=== PATIENT | female | born 1985 | race Asian ===

== ENCOUNTER 2021-11-11 21:03 | Inpatient (IN) | payer SELFPAY ==
[~2021-11-11] VITALS: Ht 162.6 cm; Wt 64.0 kg
[2021-11-11 22:10] VITALS: BP_SYST 146
[2021-11-11] MEDS ORDERED: NACL 0.9% 1,000 ML IV ONE (22:15)
[2021-11-11] MEDS ORDERED: ONDANSETRON HCL 4 MG/2 ML VIAL IVP ONE (22:15)
[2021-11-11] MEDS ORDERED: MORPHINE 4 MG INJ. 4 MG/ML VIAL IVP ONE (22:15)
[2021-11-11 22:45] LABS: HEMOGLOBIN 11.7 g/dL (12.0-16.0)
[2021-11-11 22:52] LABS: HEMATOCRIT 36.1 % (36-48); MEAN CORPUSCULAR HEMOGLOBIN 24 pg (27-31); MEAN CORPUSCULAR HGB CONC 32 % (32-36); MEAN CORPUSCULAR VOLUME 75 fL (79.0-98.0); PLATELET COUNT (AUTO) 424 K/uL (130-430); RED CELL DISTRIBUTION WIDTH 19.4 % (9.0-15.0); WHITE BLOOD COUNT (AUTO) 11.5 K/uL (4.8-10.8)
[2021-11-11 23:04] LABS: CALCIUM 9.8 mg/dL (8.4-11.0); CREATININE 0.74 mg/dL (0.55-1.30); POTASSIUM 3.6 mmol/L (3.5-5.1)
[2021-11-11 23:16] LABS: ALBUMIN 4.3 g/dL (3.4-4.8); TOTAL BILIRUBIN 3.2 mg/dL (0.0-1.0)
[2021-11-12 00:01] LABS: BASOPHILS % (MANUAL) 0 % (0-2); EOSINOPHILS % (MANUAL) 0 % (0-7); LYMPHOCYTES % (MANUAL) 6 % (20-46); MONOCYTES % (MANUAL) 3 % (0-11)
[2021-11-12] MEDS ORDERED: LR 1,000 ML IV ONE (00:45)
[2021-11-12] MEDS ORDERED: ONDANSETRON HCL 4 MG/2 ML VIAL IVP PRN (00:45)
[2021-11-12] MEDS ORDERED: HYDROmorphone 1 MG/ML INJ. CARTRIDGE IVP PRN ×2 (00:45)
[2021-11-12 03:05] VITALS: BP_SYST 127
[2021-11-12] MEDS: LR 1,000 ML IV SCH ×2 (04:09→11:37)
[2021-11-12] MEDS ORDERED: PIPERACILLIN/TAZOBACTAM 3.375 GM/VIAL (ZOSYN) IV ONE (04:12)
[2021-11-12] MEDS: PIPERACILLIN/TAZO 3.375 GM in NS 50 ML IV SCH ×3 (05:40→17:17)
[2021-11-12] MEDS ORDERED: ACETAMINOPHEN 325 MG TABLET PO PRN (07:15)
[2021-11-12 08:22] VITALS: BP_SYST 121
[2021-11-12 12:38] VITALS: BP_SYST 111
[2021-11-12 14:58] LABS: BILIRUBIN,URINE 1+ (NEGATIVE); BLOOD, URINE 3+ (NEGATIVE); CLARITY/URINE CLEAR (CLEAR); COLOR,URINE YELLOW (YELLOW); GLUCOSE,URINE NEGATIVE (NEGATIVE); KETONES,URINE 1+ (NEGATIVE); LEUKOCYTE ESTERASE ,URINE NEGATIVE (NEGATIVE); NITRITE, URINE NEGATIVE (NEGATIVE); PROTEIN URINE NEGATIVE (NEGATIVE)
[2021-11-12 15:02] LABS: BACTERIA,URINE RARE /HPF (None Seen); MUCUS,URINE 1+ /LPF (None Seen); WBC,URINE 0-3 /HPF (0-3)
[2021-11-12 17:17] VITALS: BP_SYST 121
[2021-11-12 20:00] VITALS: BP_SYST 107
[2021-11-13] MEDS: PIPERACILLIN/TAZO 3.375 GM in NS 50 ML IV SCH ×5 (00:10→21:32)
[2021-11-13] MEDS: LR 1,000 ML IV SCH ×3 (03:54→20:39)
[2021-11-13 04:00] VITALS: BP_SYST 121
[2021-11-13 08:00] VITALS: BP_SYST 124
[2021-11-13 08:04] LABS: BASOPHILS % (AUTO) 0.6 % (0.0-2.0); EOSINOPHILS # (AUTO) 0.2 K/uL (0.0-0.4); EOSINOPHILS % (AUTO) 2.2 % (0.0-4.0); HEMATOCRIT 28.6 % (36-48); HEMOGLOBIN 9.6 g/dL (12.0-16.0); LYMPHOCYTES # (AUTO) 2.1 K/uL (1.0-5.5); MEAN CORPUSCULAR HEMOGLOBIN 25 pg (27-31); MEAN CORPUSCULAR HGB CONC 34 % (32-36); MEAN CORPUSCULAR VOLUME 75 fL (79.0-98.0); MONOCYTES # (AUTO) 0.6 K/uL (0.0-1.0); MONOCYTES % (AUTO) 7.9 % (1.7-9.3); NEUTROPHILS # (AUTO) 4.1 K/uL (1.8-7.7); NEUTROPHILS % (AUTO) 59.3 % (40.0-70.0); PLATELET COUNT (AUTO) 331 K/uL (130-430); RED BLOOD CELL COUNT(AUTO) 3.79 MIL/uL (4.2-6.2); RED CELL DISTRIBUTION WIDTH 19.8 % (9.0-15.0)
[2021-11-13 08:14] LABS: ALBUMIN 2.9 g/dL (3.4-4.8); CREATININE 0.54 mg/dL (0.55-1.30); PHOSPHORUS 3.6 mg/dL (2.7-4.5); TOTAL BILIRUBIN 1.2 mg/dL (0.0-1.0)
[2021-11-13 10:58] LABS: POTASSIUM 2.8 mmol/L (3.5-5.1)
[2021-11-13] MEDS ORDERED: POTASSIUM CHLORIDE 20 MEQ/PKT PACKET PO ONE (11:15)
[2021-11-13 11:20] VITALS: BP_SYST 124
[2021-11-13 15:30] VITALS: BP_SYST 134
[2021-11-13] MEDS: POTASSIUM CHLORIDE 20 MEQ/PKT PACKET PO SCH ×2 (18:10→20:33)
[2021-11-13 20:00] VITALS: BP_SYST 139
[2021-11-14] VITALS: BP_SYST 133
[2021-11-14 06:00] VITALS: BP_SYST 131
[2021-11-14] MEDS: INDOMETHACIN 50 MG SUPP.RECT RC ONE ×2 (07:00→09:55)
[2021-11-14] MEDS: PIPERACILLIN/TAZO 3.375 GM in NS 50 ML IV SCH ×4 (07:19→23:38)
[2021-11-14 07:25] LABS: BASOPHILS # (AUTO) 0.1 K/uL (0.0-0.2); BASOPHILS % (AUTO) 0.7 % (0.0-2.0); EOSINOPHILS # (AUTO) 0.1 K/uL (0.0-0.4); EOSINOPHILS % (AUTO) 1.1 % (0.0-4.0); HEMATOCRIT 31.2 % (36-48); HEMOGLOBIN 10.3 g/dL (12.0-16.0); LYMPHOCYTES # (AUTO) 1.5 K/uL (1.0-5.5); LYMPHOCYTES % (AUTO) 18.9 % (20.5-51.5); MEAN CORPUSCULAR HEMOGLOBIN 25 pg (27-31); MEAN CORPUSCULAR HGB CONC 33 % (32-36); MEAN CORPUSCULAR VOLUME 76 fL (79.0-98.0); MONOCYTES # (AUTO) 0.4 K/uL (0.0-1.0); MONOCYTES % (AUTO) 5.3 % (1.7-9.3); NEUTROPHILS # (AUTO) 5.8 K/uL (1.8-7.7); PLATELET COUNT (AUTO) 335 K/uL (130-430); RED BLOOD CELL COUNT(AUTO) 4.12 MIL/uL (4.2-6.2); RED CELL DISTRIBUTION WIDTH 19.8 % (9.0-15.0); WHITE BLOOD COUNT (AUTO) 7.9 K/uL (4.8-10.8)
[2021-11-14 08:19] LABS: PROTHROMBIN TIME 10.1 SECS (9.5-12.5)
[2021-11-14 08:30] LABS: ALBUMIN 3.2 g/dL (3.4-4.8); CALCIUM 8.2 mg/dL (8.4-11.0); CREATININE 0.47 mg/dL (0.55-1.30); POTASSIUM 3.8 mmol/L (3.5-5.1); TOTAL BILIRUBIN 0.7 mg/dL (0.0-1.0)
[2021-11-14] MEDS: POTASSIUM CHLORIDE 20 MEQ/PKT PACKET PO SCH ×3 (08:37→20:32)
[2021-11-14] MEDS ORDERED: ONDANSETRON HCL 4 MG/2 ML VIAL IVP PRN (10:15)
[2021-11-14] MEDS ORDERED: KETOROLAC TROMETHAMINE 30 MG VIAL IVP PRN (10:15)
[2021-11-14] MEDS ORDERED: MORPHINE 4 MG INJ. 4 MG/ML VIAL IVP PRN (10:15)
[2021-11-14] MEDS ORDERED: MIDAZOLAM HCL 5 MG/5 ML VIAL IVP PRN (10:15)
[2021-11-14] MEDS ORDERED: HYDROmorphone 1 MG/ML INJ. CARTRIDGE IVP PRN (10:15)
[2021-11-14] MEDS ORDERED: METOCLOPRAMIDE HCL 10 MG/2 ML VIAL IVP PRN (10:15)
[2021-11-14] MEDS ORDERED: NALOXONE HCL 0.4 MG/ML AMP (NARCAN) IVP PRN (10:15)
[2021-11-14 10:46] VITALS: BP_SYST 131
[2021-11-14] MEDS ORDERED: ONDANSETRON HCL 4 MG/2 ML VIAL ONE (11:25)
[2021-11-14] MEDS ORDERED: KETOROLAC TROMETHAMINE 30 MG VIAL ONE (11:25)
[2021-11-14] MEDS ORDERED: GLUCAGON,HUMAN RECOMBINANT 1 MG VIAL ONE (11:25)
[2021-11-14] MEDS ORDERED: ROCURONIUM BROMIDE 10 MG/ML (ZEMURON) ONE (11:25)
[2021-11-14] MEDS ORDERED: D5/0.45 NS 1,000 ML IV.SOLN IV ONE (11:25)
[2021-11-14] MEDS ORDERED: PROPOFOL 200MG/ 20ML VIAL (DIPRIVAN) IV ONE (11:25)
[2021-11-14] MEDS ORDERED: SEVOFLURANE 15 MIN GAS INH ONE (11:25)
[2021-11-14 12:56] VITALS: BP_SYST 117
[2021-11-14] MEDS: LR 1,000 ML IV SCH ×2 (13:38→20:32)
[2021-11-14 16:56] VITALS: BP_SYST 110
[2021-11-14 20:34] VITALS: BP_SYST 120
[2021-11-14] MEDS: ACETAMINOPHEN 325 MG TABLET PO PRN (20:44)
[2021-11-15] VITALS: BP_SYST 114
[2021-11-15] MEDS: LR 1,000 ML IV SCH ×2 (05:12→09:27)
[2021-11-15] MEDS: PIPERACILLIN/TAZO 3.375 GM in NS 50 ML IV SCH ×3 (05:13→18:10)
[2021-11-15 08:00] VITALS: BP_SYST 131
[2021-11-15 08:25] LABS: CALCIUM 8.2 mg/dL (8.4-11.0); CREATININE 0.62 mg/dL (0.55-1.30); POTASSIUM 3.8 mmol/L (3.5-5.1); TOTAL BILIRUBIN 0.7 mg/dL (0.0-1.0)
[2021-11-15] MEDS: POTASSIUM CHLORIDE 20 MEQ/PKT PACKET PO SCH (09:26)
[2021-11-15] MEDS: ACETAMINOPHEN 325 MG TABLET PO PRN (09:26)
[2021-11-15 12:00] VITALS: BP_SYST 120
[2021-11-15 12:01] LABS: BASOPHILS % (AUTO) 0.7 % (0.0-2.0); EOSINOPHILS # (AUTO) 0.1 K/uL (0.0-0.4); HEMATOCRIT 30.5 % (36-48); HEMOGLOBIN 9.8 g/dL (12.0-16.0); LYMPHOCYTES # (AUTO) 1.6 K/uL (1.0-5.5); LYMPHOCYTES % (AUTO) 29.6 % (20.5-51.5); MEAN CORPUSCULAR HEMOGLOBIN 25 pg (27-31); MEAN CORPUSCULAR HGB CONC 32 % (32-36); MEAN CORPUSCULAR VOLUME 76 fL (79.0-98.0); MONOCYTES # (AUTO) 0.5 K/uL (0.0-1.0); MONOCYTES % (AUTO) 8.2 % (1.7-9.3); NEUTROPHILS # (AUTO) 3.3 K/uL (1.8-7.7); NEUTROPHILS % (AUTO) 59.5 % (40.0-70.0); PLATELET COUNT (AUTO) 351 K/uL (130-430); WHITE BLOOD COUNT (AUTO) 5.5 K/uL (4.8-10.8)
[2021-11-15 20:00] VITALS: BP_SYST 120
[2021-11-16 00:43] VITALS: BP_SYST 111
[2021-11-16] MEDS: PIPERACILLIN/TAZO 3.375 GM in NS 50 ML IV SCH ×3 (01:48→13:36)
[2021-11-16] MEDS: POTASSIUM CHLORIDE 20 MEQ/PKT PACKET PO SCH ×2 (02:30→10:35)
[2021-11-16 08:18] LABS: ALBUMIN 2.9 g/dL (3.4-4.8); CALCIUM 8.4 mg/dL (8.4-11.0); CREATININE 0.64 mg/dL (0.55-1.30); POTASSIUM 3.4 mmol/L (3.5-5.1); TOTAL BILIRUBIN 0.5 mg/dL (0.0-1.0)
[2021-11-16 08:39] VITALS: BP_SYST 118
[2021-11-16 14:33] LABS: BASOPHILS % (AUTO) 0.7 % (0.0-2.0); EOSINOPHILS # (AUTO) 0.2 K/uL (0.0-0.4); EOSINOPHILS % (AUTO) 2.9 % (0.0-4.0); HEMOGLOBIN 9.4 g/dL (12.0-16.0); LYMPHOCYTES # (AUTO) 1.8 K/uL (1.0-5.5); LYMPHOCYTES % (AUTO) 32.3 % (20.5-51.5); MEAN CORPUSCULAR HEMOGLOBIN 25 pg (27-31); MEAN CORPUSCULAR HGB CONC 32 % (32-36); MEAN CORPUSCULAR VOLUME 77 fL (79.0-98.0); MONOCYTES # (AUTO) 0.4 K/uL (0.0-1.0); MONOCYTES % (AUTO) 7.5 % (1.7-9.3); NEUTROPHILS # (AUTO) 3.1 K/uL (1.8-7.7); NEUTROPHILS % (AUTO) 56.6 % (40.0-70.0); PLATELET COUNT (AUTO) 369 K/uL (130-430); RED BLOOD CELL COUNT(AUTO) 3.78 MIL/uL (4.2-6.2); RED CELL DISTRIBUTION WIDTH 20.7 % (9.0-15.0); WHITE BLOOD COUNT (AUTO) 5.4 K/uL (4.8-10.8)
[2021-11-16] MEDS ORDERED: AUG875 PO (16:35)
[2021-11-16] MEDS ORDERED: L.RH1CAP PO (16:36)
[2021-11-16 18:33] VITALS: BP_SYST 125
[2021-11-16 18:43] VITALS: BP_SYST 125
[2021-11-16 18:47] VITALS: BP_SYST 125
== END 2021-11-16 21:32 | disposition home or self-care (01) | DRG 444 ==
LOC: SED 21:03 → SMU 11-12 00:35
PROVIDERS: ADMIT Internal Medicine; ATTEND Internal Medicine
PROC: 0F798DZ Dilation of Common Bile Duct with Intraluminal Device, Via Natural or Artificial Opening Endoscopic (ICD-10-PCS; principal; 2021-11-14 09:54)
PROC: BF131ZZ Fluoroscopy of Gallbladder and Bile Ducts using Low Osmolar Contrast (ICD-10-PCS; 2021-11-14 09:54)
DX: K80.63 Calculus of gallbladder and bile duct with acute cholecystitis with obstruction (principal); K85.10 Biliary acute pancreatitis without necrosis or infection; E44.1 Mild protein-calorie malnutrition; Z20.822 Contact with and (suspected) exposure to COVID-19; E87.6 Hypokalemia; Z68.24 Body mass index [BMI] 24.0-24.9, adult
CPT/HCPCS: 36415; 74181; 74330-TC; 76705; 80053; 80061; 81000; 83690; 83735; 84100; 84702; 85007; 85025; 85027; 85610-TC; 85730-TC; 96361; 96374; 96375; 99291; 99292; J1170; J1610; J1885; J2270; J2405; J2543; J2704; Q9967

== ENCOUNTER 2022-01-06 11:24 | Emergency (ER) | payer MEDICAID ==
[~2022-01-06] VITALS: Ht 160 cm; Wt 59.0 kg
[~2022-01-06 11:24] MED LIST: AUG875 PO; L.RH1CAP PO
[2022-01-06 11:34] VITALS: BP_SYST 121
[2022-01-06 14:09] VITALS: BP_SYST 129
== END 2022-01-06 14:09 | disposition home or self-care (01) ==
LOC: SED 11:24
DX: Z45.82 Encounter for adjustment or removal of myringotomy device (stent) (tube) (principal); Z79.899 Other long term (current) drug therapy
CPT/HCPCS: 99281

== ENCOUNTER 2022-03-26 14:54 | Emergency (ER) | payer MEDICAID ==
[~2022-03-26] VITALS: Ht 160 cm; Wt 49.9 kg
[2022-03-26 15:00] VITALS: BP_SYST 122
--- NOTE | 2022-03-26 15:06 | NUR ---
DR SHEIKH IN TRIAGE FOR EXAM
[2022-03-26] MEDS ORDERED: LIDOCAINE 1%, 20 ML MDV 20 ML ONE (16:16)
[2022-03-26] MEDS ORDERED: IBUP-1969 PO (16:41)
[2022-03-26] MEDS ORDERED: DIPH-TET Vacc 0.5 ML VIAL I.M. ONE (16:52)
[2022-03-26] MEDS: BACITRACIN 1 GM OINT TP ONE (17:01)
[2022-03-26] MEDS: LIDOCAINE 1% 10 MG/ML, 20 ML MDV SUBCUT ONE (17:01)
--- NOTE | 2022-03-26 17:10 | NUR ---
PT PRESENTED TO ED WITH A CUT TO THE RIGHT HAND. PT NAD, EVEN UNLABORED RESPIRATIONS, SKIN INTACT BESIDES THE HAND CUT, PT CUT HER HAND BY PICKING UP A BROKEN MUG NO OTHER COMPLAINTS AND PT DENIED PAIN. ED DR ASSESSED PT AND DR. SHEIKH STERILE PROCEDURE WITH STICHES WERE DONE FOR PT. ALL QUESTIONS AND ANSWERS WERE DONE THROUGH THE TRANSLATION IPAD.
--- NOTE | 2022-03-26 17:13 | NUR ---
Patient given written and verbal discharge instructions and verbalizes understanding. ER MD discussed with patient the results and treatment provided. Patient in stable condition. ID arm band removed. Rx of MOTRIN 600MG given. Patient educated on pain management and to follow up with PMD IN 2 DAYS AND IN 2 WEEKS TO GET THE STITCHES REMOVED. Pain Scale . Opportunity for questions provided and answered THROUGH TRANSLATION IPAD. Medication side effect fact sheet provided.
== END 2022-03-26 17:13 | disposition home or self-care (01) ==
LOC: SED 14:54
DX: S61.411A Laceration without foreign body of right hand, initial encounter (principal); Z79.899 Other long term (current) drug therapy; W25.XXXA Contact with sharp glass, initial encounter; Y93.89 Activity, other specified; Y92.89 Other specified places as the place of occurrence of the external cause; Y99.8 Other external cause status
CPT/HCPCS: 99283; 90714; 12002; J2001

== ENCOUNTER 2022-03-28 13:16 | Emergency (ER) | payer MEDICAID ==
[~2022-03-28] VITALS: Ht 152.4 cm; Wt 50.8 kg
[~2022-03-28 13:16] MED LIST changes: +IBUP-1969 PO
--- NOTE | 2022-03-28 13:18 | NUR ---
Pt brought by self, A&Ox4, pt presents to ER for wound check on R hand, afebrile , VSS, will cont to monitor
--- NOTE | 2022-03-28 13:20 | NUR ---
Juanita joshi in [facility] - 03/28/22 at 1740 by [email or web address] N/A for sepsis
[2022-03-28 13:40] VITALS: BP_SYST 102
--- NOTE | 2022-03-28 14:20 | NUR ---
Dr Bhandari evaluating patient at bedside
[2022-03-28] MEDS ORDERED: BACITRACIN/POLYMYXIN B SULFATE 30 GM TOPICAL OINT. TP SCH (14:45)
[2022-03-28] MEDS ORDERED: BACITRACIN/POLYMYXIN B SULFATE 30 GM TOPICAL OINT. TP ONE (14:45)
[2022-03-28] MEDS ORDERED: BACITRACIN 1 GM OINT TP ONE (14:56)
[2022-03-28 16:29] VITALS: BP_SYST 102
--- NOTE | 2022-03-28 17:36 | NUR ---
Patient given written and verbal discharge instructions and verbalizes understanding. ER MD discussed with patient the results and treatment provided. Patient in stable condition. ID arm band removed. No Rx given. Patient educated on pain management and to follow up with PMD. Pain Scale 2/10. Opportunity for questions provided and answered. Medication side effect fact sheet provided.
== END 2022-03-28 17:36 | disposition home or self-care (01) ==
LOC: SED 13:16
DX: Z48.00 Encounter for change or removal of nonsurgical wound dressing (principal); Z79.899 Other long term (current) drug therapy
CPT/HCPCS: 99281

== ENCOUNTER 2022-04-05 15:02 | Emergency (ER) | payer MEDICAID ==
[~2022-04-05] VITALS: Ht 152.4 cm; Wt 49.9 kg
[2022-04-05 15:22] VITALS: BP_SYST 118
--- NOTE | 2022-04-05 15:25 | NUR ---
Patient triaged and placed in waiting room. VSS and patient appears in no acute distress at this time. Accompanied by SELF, awaiting available bed, and MD notified of need for MSE.
--- NOTE | 2022-04-05 16:11 | NUR ---
Patient to ER bed H1 to gown for evaluation. Side rails up. Report given to MELINDA CRAIG AND MELINDA BOWIE.
--- NOTE | 2022-04-05 16:30 | NUR ---
ER Dr. MOHR at bedside examining patient.
[2022-04-05 16:42] VITALS: BP_SYST 116
--- NOTE | 2022-04-05 16:42 | NUR ---
Patient given written and verbal discharge instructions and verbalizes understanding. ER MD discussed with patient the results and treatment provided. Patient in stable condition. ID arm band removed. IV catheter removed intact and dressing applied, no active bleeding. Patient educated on pain management and to follow up with PMD. Pain Scale 0/10 Opportunity for questions provided and answered.
== END 2022-04-05 16:42 | disposition home or self-care (01) ==
LOC: SED 15:02
DX: Z48.00 Encounter for change or removal of nonsurgical wound dressing (principal); Z79.899 Other long term (current) drug therapy
CPT/HCPCS: 99281

== ENCOUNTER 2023-11-14 10:35 | Emergency (ER) | payer MEDICAID, OTHER ==
[~2023-11-14] VITALS: Ht 167.6 cm; Wt 59.0 kg
[2023-11-14 10:45] VITALS: BP_SYST 118; PULSE 89; RESP 18; TEMP 98; O2SAT 98
[2023-11-14 11:28] LABS: BILIRUBIN,URINE NEGATIVE (NEGATIVE); BLOOD, URINE NEGATIVE (NEGATIVE); CLARITY/URINE CLEAR (CLEAR); COLOR,URINE YELLOW (YELLOW); GLUCOSE,URINE NEGATIVE (NEGATIVE); KETONES,URINE TRACE (NEGATIVE); LEUKOCYTE ESTERASE ,URINE NEGATIVE (NEGATIVE); NITRITE, URINE NEGATIVE (NEGATIVE); PROTEIN URINE NEGATIVE (NEGATIVE); UROBILINOGEN,URINE 0.2 (0.2-1.0)
[2023-11-14 11:38] LABS: BASOPHILS % (AUTO) 0.6 % (0.0-2.0); HEMATOCRIT 39.5 % (36-48); LYMPHOCYTES # (AUTO) 0.9 K/uL (1.0-5.5); MEAN CORPUSCULAR HGB CONC 33 % (32-36); MEAN CORPUSCULAR VOLUME 88 fL (79.0-98.0); MONOCYTES # (AUTO) 0.4 K/uL (0.0-1.0); NEUTROPHILS # (AUTO) 3.6 K/uL (1.8-7.7)
[2023-11-14 11:40] LABS: EOSINOPHILS % (AUTO) 0.8 % (0.0-4.0); LYMPHOCYTES % (AUTO) 18.7 % (20.5-51.5); MEAN CORPUSCULAR HEMOGLOBIN 29 pg (27-31); MONOCYTES % (AUTO) 7.2 % (1.7-9.3); NEUTROPHILS % (AUTO) 72.7 % (40.0-70.0); PLATELET COUNT (AUTO) 323 K/uL (130-430); WHITE BLOOD COUNT (AUTO) 4.9 K/uL (4.8-10.8)
[2023-11-14 11:58] LABS: CALCIUM 9.1 mg/dL (8.4-11.0); CREATININE 0.64 mg/dL (0.55-1.30); POTASSIUM 3.7 mmol/L (3.5-5.1)
[2023-11-14 12:24] VITALS: BP_SYST 118; PULSE 89; RESP 18; TEMP 98; O2SAT 98
== END 2023-11-14 12:23 | disposition home or self-care (01) ==
LOC: SED 10:35
DX: N91.2 Amenorrhea, unspecified (principal)
CPT/HCPCS: 36415; 80048; 81001; 81003; 81025; 85025; 99283